=== PATIENT | female | born 1940 | race Caucasian/White ===

== ENCOUNTER 2016-10-09 13:32 | Outpatient (CLI) | payer OTHER ==
[~2016-10-09 13:32] MED LIST: ADVAIR; ADVAIR DISKUS INH; ALBUTEROL HFA60 DOSE IN; ASPIRIN ENTERIC81 M1 PO; CEPHALEXIN500 MG PO; HEARTBURN RELIE75 MG; HEARTBURN RELIE75 MG PO; LEVOTHYROXINE25 MCG PO; LIPITOR20 MG PO; LOSARTAN POTASS25 MG PO; MIRALAX3350 N1; PLAVIX75 MG PO; PROTONIX40 MG PO; SIMVASTATIN5 MG; SPIRIVA18 MCG INH; SYMBICORT1 AE1; ZESTRIL2.5 MG PO; ZOLPIDEM TARTRAT5 MG PO
--- NOTE | 2016-10-09 16:24 | DIAGNOSTIC IMAGING REPORT ---
PROCEDURE: US THORACENTESIS W/O TUBE-LEFT INDICATION: Left pleural effusion. Recent pneumonia. COMPARISON: Comparison made to chest x-ray from [facility] on 10/08/2016. TECHNIQUE: Informed consent was obtained and the patient was advised of the usual risks and complications including infection, bleeding, allergy and pneumothorax. Upright position. Following sterile preparation and 1% lidocaine local anesthetic, ultrasound guidance was utilized to place a 16-gauge angiocatheter in the left posterolateral thorax. 950 ml of serous was aspirated and sent for laboratory studies (Gram stain culture, cell count differential, protein, glucose, LDH, cytology). The patient tolerated the procedure well and was discharged home in satisfactory condition with instructions to call for any untoward symptoms (chest pain, shortness of breath). IMPRESSION: 1. Successful ultrasound-guided diagnostic therapeutic left thoracentesis (950 ml of serous fluid). 2. Findings discussed with Dr. Rai.
[2016-11-30] MEDS ORDERED: LISINOPRIL10 MG PO (16:41)
[2016-11-30] MEDS ORDERED: ASPIRIN81 M1 PO (16:41)
[2016-11-30] MEDS ORDERED: DOXEPIN HCL10 MG PO (16:42)
[2016-11-30] MEDS ORDERED: METOPROLOL TART25 MG PO (16:42)
[2016-11-30] MEDS ORDERED: AUGMENTIN875 MG PO (16:43)
== END 2016-10-09 23:00 ==
LOC: US SRH 13:32
PROC: 0W9B3ZZ Drainage of Left Pleural Cavity, Percutaneous Approach (ICD-10-PCS; principal; 2016-10-09)
DX: J90 Pleural effusion, not elsewhere classified (principal)

== ENCOUNTER 2016-11-12 10:38 | Outpatient (CLI) | payer OTHER ==
--- NOTE | 2016-11-12 14:18 | DIAGNOSTIC IMAGING REPORT ---
PROCEDURE: CT THORAX WITHOUT CONTRAST INDICATION: PLEURAL EFFUSION TECHNIQUE: Noncontrast axial images were obtained of the chest with coronal and sagittal reformations. COMPARISON: Outside chest x-ray 10/15/[address] chest 03/05/2014. FINDINGS: Interval collapse of the left lower lobe with air bronchograms, small left pleural effusion and progression of left hemithorax volume loss. Calcified granulomas with several new sub 4 mm pulmonary nodules. Emphysema with biapical, right middle lobe and lingular scarring. Calcified mediastinal lymph nodes but no evidence of enlarged lymph nodes. Moderate atherosclerosis of the aorta but no dissection or aneurysm. Coronary atherosclerosis. Normal heart size. There is a new partially visualized patent graft from the right axillary artery down the right lateral chest wall. Cholecystectomy. Left renal upper pole parenchymal calcification with overlying scar. Calcified splenic granulomas. No suspicious osseous lesions. IMPRESSION: 1. Interval collapse of the left lower lobe without evidence of a central obstructing lesion. Recommend bronchoscopy. 2. Calcified granulomas with several new some 4 mm nodules, possible additional granulomas versus metastases 3. Emphysema with bilateral scarring 4. Vascular graft from the right axillary artery down the right lateral chest wall 5. Results discussed with Dr. Rai
[2016-11-30] MEDS ORDERED: LISINOPRIL10 MG PO (16:41)
[2016-11-30] MEDS ORDERED: ASPIRIN81 M1 PO (16:41)
[2016-11-30] MEDS ORDERED: METOPROLOL TART25 MG PO (16:42)
[2016-11-30] MEDS ORDERED: DOXEPIN HCL10 MG PO (16:42)
[2016-11-30] MEDS ORDERED: AUGMENTIN875 MG PO (16:43)
== END 2016-11-12 23:00 ==
LOC: CT SRH 10:38
DX: J43.9 Emphysema, unspecified (principal); R91.8 Other nonspecific abnormal finding of lung field

== ENCOUNTER 2016-12-03 08:16 | Day surgery (SDC) | payer OTHER ==
[~2016-12-03] VITALS: Ht 167.6 cm; Wt 64.0 kg
[~2016-12-03 08:16] MED LIST changes: +ASPIRIN81 M1 PO; +AUGMENTIN875 MG PO; +DOXEPIN HCL10 MG PO; +LISINOPRIL10 MG PO; +METOPROLOL TART25 MG PO
--- NOTE | 2016-12-03 12:30 | Provider's Discharge Care Plan ---
Problem, Goal, Plan Problem List 1. Atelectasis of left lung
--- NOTE | 2016-12-03 12:30 | Provider's Discharge Care Plan ---
Problem, Goal, Plan Problem List 1. Atelectasis of left lung
--- NOTE | 2016-12-03 13:33 | DIAGNOSTIC IMAGING REPORT ---
PROCEDURE: XR CHEST 1 VIEW INDICATION: post bronch TECHNIQUE: Portable AP view 01:16 p.m. COMPARISON: Chest 10/15/2016 and 07/15/2015 FINDINGS: There are mild to moderate parenchymal change at the left medial lung base (retrocardiac region). The lungs are otherwise clear, although hyperexpanded. Heart and mediastinum are normal. Surgical clips in the right axillary region. Thorax is normal. IMPRESSION: 1. There are mild to moderate parenchymal changes at the left lung base. Overall appearance suggests acute pneumonitis superimposed on chronic scarring. 2. Chronic obstructive pulmonary disease.
--- NOTE | 2016-12-03 14:14 | OPERATIVE REPORT ---
DATE OF SURGERY: 12/03/2016 SURGEON: Denilson Pacheco MD PREOPERATIVE DIAGNOSIS: 1. Left lower lobe atelectasis POSTOPERATIVE DIAGNOSIS: 1. Mucus plug of left lower lobe PROCEDURE PERFORMED: 1. Bronchoscopy with washings ANESTHESIA: General. INDICATIONS: The patient is a 76-year-old woman with left lower lobar atelectasis. Initially, she was thought to require a thoracoscopy. However, a CT scan demonstrated that the density is not fluid but the entire left lower lobe. This patient has a history of ongoing pulmonary problems and smoking in the face of chronic pulmonary disease. SURGICAL TECHNIQUE: The patient was taken to the operating room. The originally- planned thoracoscopy was canceled preoperatively and the patient instead switched to just bronchoscopy alone. The patient was intubated, and the well-lubricated sterile bronchoscope was inserted and used to visualize the dash. The dash was sharp. On the right side, a brief exam was carried out, which appeared entirely normal. On the left side, there were frothy secretions in the lower lobe bronchus, and there was no air movement in this area. Suction and sequential irrigations using alternating acetylcysteine and saline solution were done until thick mucus strands were obtained from the lower lobe, and the lower lobe segmental bronchi could then be visualized. Initial washings were collected for cytologic and bacterial studies using a Lukens trap. At the conclusion, the lower lobe airway appeared to be widely patent. The bronchoscope was withdrawn, and the patient left in good condition. No intraoperative complications were encountered.
[2016-12-03 14:43] VITALS: BP 161/70
== END 2016-12-03 14:45 | disposition home or self-care (01) ==
LOC: OR SRH 08:16 → SCU SRH 08:16 → OR SRH 11:00
PROVIDERS: Surgery
PROC: 0B9B8ZX Drainage of Left Lower Lobe Bronchus, Via Natural or Artificial Opening Endoscopic, Diagnostic (ICD-10-PCS; principal; 2016-12-03 11:00)
PROC: 0B9J8ZX Drainage of Left Lower Lung Lobe, Via Natural or Artificial Opening Endoscopic, Diagnostic (ICD-10-PCS; principal; 2016-12-03 11:00)
DX: T17.890A Other foreign object in other parts of respiratory tract causing asphyxiation, initial encounter (principal); J44.9 Chronic obstructive pulmonary disease, unspecified; Z72.0 Tobacco use; I10 Essential (primary) hypertension
CPT/HCPCS: 29229; 29240; 50004; 60001; 70002; 80575; 90001; 90047; 90074; 90155; 91004; 95059